=== PATIENT | male | born 1980 | race Caucasian/White ===

== ENCOUNTER 2020-02-14 18:37 | Inpatient (IN) | payer MEDICAID ==
[~2020-02-14] VITALS: Ht 180.3 cm; Wt 101.1 kg
[2020-02-14 20:27] VITALS: BP 143/92; PULSE 64; TEMP 97.8
--- NOTE | 2020-02-14 22:17 | NUR ---
TRANSFER FROM [facility]. PT HERE WITH ABDOMINAL PAIN R/T DUODENAL ULCER. DR. VANN IN TO SEE PT. 5 PAGE ASSESSMENT COMPLETED. PT ADMIN. DILAUDID FOR PAIN. HE STATES THIS ABDOMINAL PAIN HAS BEEN OFF AND ON FOR 3 MONTHS. NO N/V.
[2020-02-14 23:38] VITALS: BP 134/72; PULSE 65; TEMP 98.5
[2020-02-15 03:19] VITALS: BP 120/71; PULSE 76; TEMP 97.8
[2020-02-15 07:06] LABS: HEMATOCRIT 46.6 % (42.0-52.0); HEMOGLOBIN 15.2 g/dl (13.5-18.0); MEAN CELL VOLUME 90 fl (80.0-100.0); MEAN CORPUSCULAR HEMOGLOBIN 29 pg (27.0-31.0); MEAN CORPUSCULAR HGB CONC 33 g/dl (33.0-37.0); MEAN PLATELET VOLUME 11.3 fl (7.4-10.4); PLATELET COUNT 320 K/mm3 (130-400); REDCELL DISTRIBUTION WIDTH-CV 14.5 % (11.5-14.5)
[2020-02-15 07:18] LABS: CALCIUM 8.7 mg/dL (8.4-10.2); CREATININE, serum 1.13 (0.66-1.25); POTASSIUM 4.1 mmol/L (3.4-5.0)
[2020-02-15 08:13] VITALS: BP 129/68; PULSE 80; TEMP 98.1
--- NOTE | 2020-02-15 08:50 | NUR ---
Patient in bed resting. Drowsy but arouses to voice and touch. Denies pain at this time. Fluids infusing per orders to left forarm IV. Denies further needs at this time.
--- NOTE | 2020-02-15 09:15 | NUR ---
Spouse at bedside. Denies further needs. Educated on clear liquid diet.
--- NOTE | 2020-02-15 10:16 | NUR ---
Attacher met with patient and patient's , Jing (ph#[phone]) to discuss discharge planning. Patient lives with his in [place], [place] and will be seeing Dr. Zafar for primary care. Patient obtains medications from [facility] in [place], [place] with no difficulties. Patient does not use any DME and reports independence with ADLS. Patient plans to return home upon discharge. No needs identified at this time.
[2020-02-15 11:27] VITALS: BP 121/87; PULSE 75; TEMP 98.5
--- NOTE | 2020-02-15 11:35 | NUR ---
First visit from the program services planner. No needs right now.
--- NOTE | 2020-02-15 11:36 | NUR ---
Patient sitting up in recliner, states he feels better today than he has for months. Spouse at bedside, denies further needs at this time.
[2020-02-15 15:36] VITALS: BP 111/73; PULSE 80; TEMP 98.1
--- NOTE | 2020-02-15 18:33 | NUR ---
Patient has done well throughout the day, minimal needs. Tolerating diet without pain/N/V. Ambulating in halls this afternoon. Fluids continue infusing per orders. Denies further needs at this time. Will report off to back order clerk.
[2020-02-15 19:29] VITALS: BP 133/69; PULSE 93; TEMP 97.9
--- NOTE | 2020-02-15 22:00 | NUR ---
IV SITE WRAPPED SO PT COULD SHOWER. DENIES PAIN. IV SITE TO RIGHT FOREARM WITHOUT REDNESS OR SWELLING. REMAINS ON CLEAR LIQUIDS. IS ALERT AND ORIENTED X4.
[2020-02-15 23:27] VITALS: BP 140/77; PULSE 73; TEMP 98.1
--- NOTE | 2020-02-16 | NUR ---
PT RESTING WELL. IVF INFUSING WITHOUT REDNESS OR SWELLING.
[2020-02-16 04:09] VITALS: BP 97/48; PULSE 75; TEMP 98
[2020-02-16 07:27] LABS: HEMATOCRIT 46.6 % (42.0-52.0); HEMOGLOBIN 15.3 g/dl (13.5-18.0); MEAN CELL VOLUME 89 fl (80.0-100.0); MEAN CORPUSCULAR HEMOGLOBIN 29 pg (27.0-31.0); MEAN CORPUSCULAR HGB CONC 33 g/dl (33.0-37.0); PLATELET COUNT 372 K/mm3 (130-400); RED BLOOD COUNT 5.25 M/mm3 (4.20-5.60); REDCELL DISTRIBUTION WIDTH-CV 14.4 % (11.5-14.5)
[2020-02-16 07:32] LABS: CALCIUM 8.8 mg/dL (8.4-10.2); CREATININE, serum 1.05 (0.66-1.25); POTASSIUM 3.8 mmol/L (3.4-5.0)
[2020-02-16 07:38] VITALS: BP 103/56; PULSE 72; TEMP 98.4
--- NOTE | 2020-02-16 08:22 | NUR ---
PT SITTING UP IN BED. INCREASED DIET TO GENRAL WITH INSTUCTIONS FOR PT TO EASE INTO GENRAL FOOD. PT VERBALIZED UNDERSTANDING AND WANTS TO GO HOME LATER TODAY.
--- NOTE | 2020-02-16 10:00 | NUR ---
PT TOLERATING GENERAL DIET WITH NO N/V.
[2020-02-16 12:09] VITALS: BP 113/64; PULSE 79; TEMP 98.7
--- NOTE | 2020-02-16 12:42 | NUR ---
IV DISCONTINUED. PT TO SHOWER THEN DISCHARGE TO HOME. ORDERS IN BY DR. HERNÁNDEZ.
--- NOTE | 2020-02-16 13:09 | NUR ---
DISCHARGE INSTRUCTIONS PROVIDED TO PATIENT. PT SHOWERED AND THEN ESCORTED TO ED ENTRANCE. PT HAD NO QUESTIONS.
== END 2020-02-16 13:11 | disposition home or self-care (01) | DRG 384 ==
LOC: MEDICAL 18:37 → SURG 20:25
PROVIDERS: ADMIT Surgery
DX: K26.9 Duodenal ulcer, unspecified as acute or chronic, without hemorrhage or perforation (principal); Z87.891 Personal history of nicotine dependence
CPT/HCPCS: C9113; J1170; J2543; J7120